=== PATIENT | male | born 1965 ===

== ENCOUNTER → 2016-07-22 | Day surgery (SDC) | payer OTHER ==
[~2016-07-22] VITALS: Ht 193 cm; Wt 89.0 kg
[~2016-07-22] MED LIST: 500ML BSSPLUS 0.5ML EPI1:1000 IRRIG ONE; ACETAMINOPHEN 325 MG TAB PO PRN; ATROPINE SULFATE 0.1 MG/ML 5ML SYR IV PRN; ATROPINE SULFATE 1% OP OINT PER APPLICATION CHARGE ONE; AcetaZOLAMIDE 250 MG TAB PO ONE; AcetaZOLAMIDE 500 MG CAPCR ONE; BSS FLUSH ONE; BUPIVACAINE HCL 0.75% 10 ML AMP/VIAL ONE; CEFAZOLIN SOD 1 GM VIAL ONE; CITA20TA4 PO; DEXAMETHASONE SOD INJ 4 MG/ML VIAL ONE; EpHEDrine SULFATE INJ 50 MG/ML AMP IV PRN; EpINEphrine INJ 1MG/ML AMP 1 MG/ML AMP ONE; FENTANYL CITRATE INJ 50 MCG/1 ML 2 ML VIAL IV PRN; FLUMAZENIL 0.1 MG/1 ML 10 ML VIAL IV PRN; HMLI7525 SC; HYALURONIDASE HUMAN 150 UNIT/ML INJ ONE; HYDROmorphone INJ 2 MG/ML SYR/VIAL IV PRN; INDOCYANINE GREEN 25 MG/10 ML ONE; INSULIN HUMAN REGULAR IV ONE; LABETALOL HCL IV 5 MG/ML 20ML IV PRN; LACTATED RINGER'S 1000ML 500 ML IV SCH; LIDOCAINE HCL 2% 2 ML VIAL (20MG/ML) ONE; LIDOCAINE MPF 4% INJ INJ ONE; LISI-461 PO; LVMI; MEPERIDINE HCL 25 MG/ML CARP IV PRN; METF1TAB53 PO; MIDAZOLAM HCL 1 MG/ML 2ML VIAL ONE; NALOXONE HCL 0.4 MG/1 ML VIAL/CARP IV PRN; NEOMYCIN/POLYMYX/DEXAMETH OP OINT PER APP CHARGE ONE; NovoLIN-R INSULIN PER UNIT CHARGE ONE; OCUCOAT 1 ML SOLN IO ONE; ONDANSETRON INJ 2 MG/ML 2 ML VIAL IV PRN; PHENYLEPHRINE 100MCG/ML 5ML SYR IV PRN; POLY335019 PO; PRLSR20 PO; PROP20TA67 PO; PROPARACAINE 0.5% OP SOLN PER DROP CHARGE OPL SCH; PROPOFOL IV EMULSION 10 MG/ML 20 ML VIAL IV ONE; ROPI2TAB6 PO; SIMV40TA2 PO; TIMOLOL MALEATE 0.5% OP SOLN PER DROP CHARGE ONE; VNTHFA/IN INH; WARF4TAB8 PO; WARF5TAB7 PO
[2016-07-22 11:39] VITALS: Ht 193 cm; Wt 89.0 kg
[2016-07-22] MEDS: PHENYLEPHRINE HCL 2.5% OP SOLN PER DROP CHARGE OPL SCH ×2 (11:59→12:04)
[2016-07-22] MEDS: TROPICAMIDE 1% OP SOLN PER DROP CHARGE OPL SCH ×2 (12:00→12:05)
[2016-07-22 14:02] VITALS: TEMP 36.9
--- NOTE | 2016-07-22 14:04 | [facility] Operative Report ---
Operative Report PREOPERATIVE DIAGNOSIS: Macula-off retinal detachment, left eye. ICD 10: H33.022 POSTOPERATIVE DIAGNOSIS: same. PROCEDURE: 1. Pars plana vitrectomy, 23 gauge. 2. Fluid-air exchange. 3. Endolaser. 4 Air-gas exchange with [id number]%. All to the left eye. CPT CODE: 32217 SURGEON: Gray Ford D.O. COMPLICATIONS: None. ESTIMATED BLOOD LOSS: None. SPECIMENS: None. ANESTHESIA: Retrobulbar block and MAC. INDICATIONS FOR PROCEDURE: Surgery is indicated to decrease risk of vision loss and potentially improve vision. CONSENT: The risks, benefits and alternatives were discussed with the patient including but not limited to decreased visual acuity, failure to achieve desired results, loss of the eye, infection, pain, glaucoma, lens changes, retinal tears, retinal detachment, the need for more procedures, drooping of the eyelid, blindness, and double vision. The patient is aware of risks and consents to the surgery. Consent is signed and on the chart. OPERATION AND FINDINGS: The patient was brought to the operating room where the patient was identified by name, date, and medical record number. The surgical site was confirmed with the informed written consent. The patient was sedated by the anesthesiology team after which a 50:50 mixture of 4% lidocaine and 0.75% bupivacaine with hyaluronidase was administered in a standard retrobulbar fashion. A total of 4 ml was administered without difficulty. The patient was then prepped and draped in the usual sterile manner for retinal surgery. A wire lid speculum was placed and an Melvin 23-gauge trocar cannula system was employed. The inferior temporal trocar cannula was first placed in an angled fashion 3.75mm posterior to the surgical limbus and the infusion cannula was inserted into this cannula after which the intravitreal position was verified prior to turning the infusion on. Two more trocar cannulas were then inserted in an angled fashion, one in the superior temporal, and one in the superior nasal quadrant both 3.75mm posterior to the surgical limbus. A light pipe and vitrector were then introduced into the eye and the BIOM wide angle viewing system was brought into place. Posterior inspection revealed a macula off retinal detachment from 12-4 o'clock with the inciting retinal break at 1-2 o'clock. There was also extensive from 1- 6 o'clock with small holes. Standard core vitrectomy was performed and the vitreous was insured to be totally detached from the posterior pole with the aid of the vitrector. There was extensive lattice with a posterior insertion of the vitreous base. The vitreous base was shaved for 360 degrees. Fluid air exchange was performed and the subretinal fluid was drained through a small retinotomy site that was fashioned superior to the arcades. Endolaser was then used to place laser around the inciting retinal break and the drainage retinotomy as well as for 360 degrees along the vitreous base. Next, an air gas exchange was performed with C3F8 12% for a complete fill of the eye. The trocar cannulas were then removed and found to be air tight. The intraocular pressure was found to be within normal limits by palpation and subconjunctival injections of Kefzol and dexamethasone were administered inferiorly and superiorly. The wire lid speculum was removed. Maxitrol, atropine and timolol were applied to the surface of the eye. A light patch and shield were taped over the surface of the eye and the patient left the Operating Room in stable condition having tolerated the procedure well. DISPOSITION: A gas bracelet was placed on the patient's wrist and gas precautions reviewed as well as the positioning instructions. The patient has an appointment the following morning in the Ophthalmology Clinic. The patient is to call immediately if there are any problems overnight. I attest to the content of the Intraoperative Record and any orders documented therein. Any exceptions are noted below.
--- NOTE | 2016-07-22 14:05 | Discharge Instructions-SurgCtr ---
Discharge Instructions Visit Reason for Visit: Left Eye Retinal Detachment Discharge Discharge Diagnosis / Problem: same Discharge Goals Goal(s): Improve function Activity Recommendations Activity Limitations: per Instructions/Follow-up section Anesthesia . Post Anesthesia Instructions: If you have had General Anesthesia or IV Sedation: * Do not drive today. * Resume driving when surgeon permits. * Do not make important decisions or sign legal documents today. * Call surgeon for: 1. Temperature elevations greater than 101 degrees F. 2. Uncontrollable pain. 3. Excessive bleeding. 4. Persistent nausea and vomiting. 5. Medication intolerance (nausea, vomiting or rash). * For nausea and vomiting use only clear liquids such as: tea, soda, bouillon until nausea subsides, then gradually increase diet as tolerated. * If you have any concerns or questions, call your surgeon's office. If physician is unavailable and it is an emergency, call 911 or go to the nearest emergency room. . Instructions / Follow-Up Instructions / Follow-Up * May take Tylenol if needed for discomfort. * Do NOT lay flat on back and position head as follows: face down or right side down * Do NOT remove green bracelet until instructed to do so by your surgeon and follow these precautions: * No air travel * No travel above 2500 feet * No nitrous oxide (N2O). * Do NOT remove eye shield. * NO straining, heavy lifting (>15 pounds) or bending below waist. * Avoid getting water or soap directly into operative eye. * Do NOT rub eye. If you experience increasing eye pain not relieved by medication, please contact us immediately at [phone]. If you are unable to reach someone at the above number, call [phone] and ask to speak with the EYE DOCTOR TILE PICKER. Inform them that you are a Dr. Ford patient who had recent surgery. Procedures Procedures Performed: Left Eye Vitrectomy 23 Gauge With Laser And Gas Insertion Pending Studies Studies pending at discharge: no Medical Emergencies . Who to Call and When: Medical Emergencies: If at any time you feel your situation is an emergency, please call 911 immediately. . Non-Emergent Contact Non-Emergency issues call your: Taxi Truck Driver . . "Provider Documentation" section prepared by Gray Ford.
--- NOTE | 2016-07-22 14:28 | Anesthesia Progress Nt - [facility] ---
Anesthesia Post Op Note Date & Time Jul 22, 2016 at 14:25 Vital Signs Pain Intensity: 0 Vital Signs Past 12 Hours Date Time Temp Pulse Resp B/P Pulse Ox O2 Delivery O2 Flow Rate FiO2 07/22/16 14:02 36.9 85 16 145/97 99 Room Air 07/22/16 11:39 36.5 95 16 121/82 99 Room Air Notes Mental Status: alert / awake / arousable, participated in evaluation Pt Amnestic to Procedure: Yes Nausea / Vomiting: adequately controlled Pain: adequately controlled Airway Patency, RR, SpO2: stable & adequate BP & HR: stable & adequate Hydration State: stable & adequate Anesthetic Complications: no major complications apparent The patient's preop BSG was 324. He was given insulin regular 15 unit IV in the preop area. His BSG was checked during the case and dropped into the 200s and then 184 just prior to the end of the procedure. He is awake and stable in the PACU and has began to eat. I recommended to the patient and his family to frequently check his BSG as he has been and to treat it accordingly to which they agreed. 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
[2016-07-22 14:29] VITALS: BP 153/94; PULSE 86; O2SAT 99
== END | disposition home or self-care (01) ==
LOC: X.SURG 11:29
PROVIDERS: ATTEND Ophthalmology
DX: H33.22 Serous retinal detachment, left eye (principal); J45.909 Unspecified asthma, uncomplicated; E03.9 Hypothyroidism, unspecified; Q15.0 Congenital glaucoma; E10.65 Type 1 diabetes mellitus with hyperglycemia; Z86.718 Personal history of other venous thrombosis and embolism; Z79.01 Long term (current) use of anticoagulants; E78.5 Hyperlipidemia, unspecified; I10 Essential (primary) hypertension; N28.9 Disorder of kidney and ureter, unspecified; H43.12 Vitreous hemorrhage, left eye; F17.290 Nicotine dependence, other tobacco product, uncomplicated; Z80.6 Family history of leukemia; Z83.3 Family history of diabetes mellitus; Z83.511 Family history of glaucoma; Z82.49 Family history of ischemic heart disease and other diseases of the circulatory system; Z83.49 Family history of other endocrine, nutritional and metabolic diseases; Z82.3 Family history of stroke; Z83.518 Family history of other specified eye disorder; I80.9 Phlebitis and thrombophlebitis of unspecified site; K21.9 Gastro-esophageal reflux disease without esophagitis; F41.9 Anxiety disorder, unspecified; F32.9 Major depressive disorder, single episode, unspecified

== ENCOUNTER → 2017-03-30 | Day surgery (SDC) | payer OTHER ==
[~2017-03-30] VITALS: Ht 193 cm; Wt 97.0 kg
[~2017-03-30] MED LIST changes: -500ML BSSPLUS 0.5ML EPI1:1000 IRRIG ONE; -ACETAMINOPHEN 325 MG TAB PO PRN; -ATROPINE SULFATE 1% OP OINT PER APPLICATION CHARGE ONE; -AcetaZOLAMIDE 250 MG TAB PO ONE; -AcetaZOLAMIDE 500 MG CAPCR ONE; -BSS FLUSH ONE; +FENTANYL CITRATE INJ 50 MCG/1 ML 2 ML VIAL ONE; +HMLIS SC; -INDOCYANINE GREEN 25 MG/10 ML ONE; -INSULIN HUMAN REGULAR IV ONE; -LVMI; +LVMI SC; -NovoLIN-R INSULIN PER UNIT CHARGE ONE; -OCUCOAT 1 ML SOLN IO ONE; +ONDANSETRON INJ 2 MG/ML 2 ML VIAL ONE; +PHENYLEPHRINE HCL 2.5% OP SOLN PER DROP CHARGE OPR SCH; +POVIDONE-IODINE OP SOLN (SURGERY CNTR CHARGING ONLY) ONE; -PROPARACAINE 0.5% OP SOLN PER DROP CHARGE OPL SCH; +PROPARACAINE 0.5% OP SOLN PER DROP CHARGE OPR SCH; +RIVA1TAB PO; +TROPICAMIDE 1% OP SOLN PER DROP CHARGE OPR SCH
[2017-03-30 08:16] VITALS: Ht 193 cm; Wt 97.0 kg
[2017-03-30 08:21] VITALS: BP 131/91; PULSE 84; TEMP 36.7; O2SAT 97
--- NOTE | 2017-03-30 09:32 | History & Physical Bridge - SC ---
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 I have examined the patient, reviewed the History & Physical and in the interval since the performance of the History & Physical I have noted the following changes of clinical significance: No changes noted
--- NOTE | 2017-03-30 11:00 | Anesthesiology Progress Note ---
Anesthesia Progress Note Date of Service Mar 30, 2017. Progress Notes The patient is an insulin dependent diabetic who was found to have a BSG of 423 rechecked at 442 on arrival today. He took Levemir 50 units last night but also ate three pieces of pizza and had several snack cakes right before going to bed because he was afraid of becoming hypoglycemic after fasting 8 hours. The patient did not take his morning dose of Levemir because he has not picked it up from the pharmacy yet. The patient took 14 units of his own Humalog insulin at 0830. His BSG at [address] Ford requested general anesthesia for the procedure, but due to the uncontrolled hyperglycemia, the patient's surgery was cancelled today. His skeiner's office in [place] was called and I discussed the patient with a nurse practitioner from there. She recommended to recheck the patient's BSG at 1030 and to let him leave if it was under 300 without giving him any additional insulin. She stated that the patient does have difficulty controlling his blood sugar but they will work with him so that he may be controlled enough to have his eye surgery. She also spoke to the patient and told him to pickup his Levemir from the pharmacy to take his morning dose. The patient's BSG was rechecked at 1030 and found to be 288. The patient was counseled not to eat snack cakes and sugary foods the night prior to his surgery and was reassured that his blood sugar would be monitored by anesthesia in the perioperative period to check for hypoglycemia. He was discharged home and told to follow up with his skeiner.
== END | disposition home or self-care (01) ==
LOC: X.SURG 07:44
PROVIDERS: ATTEND Ophthalmology
DX: H33.22 Serous retinal detachment, left eye (principal); H33.309 Unspecified retinal break, unspecified eye; Z53.09 Procedure and treatment not carried out because of other contraindication; E10.65 Type 1 diabetes mellitus with hyperglycemia; J45.909 Unspecified asthma, uncomplicated; E03.9 Hypothyroidism, unspecified; E10.40 Type 1 diabetes mellitus with diabetic neuropathy, unspecified; N40.0 Benign prostatic hyperplasia without lower urinary tract symptoms; E78.5 Hyperlipidemia, unspecified; I10 Essential (primary) hypertension; Z79.4 Long term (current) use of insulin; Z79.899 Other long term (current) drug therapy; Z79.84 Long term (current) use of oral hypoglycemic drugs; Z82.49 Family history of ischemic heart disease and other diseases of the circulatory system; Z83.3 Family history of diabetes mellitus

== ENCOUNTER → 2017-04-27 | Day surgery (SDC) | payer OTHER ==
[2017-04-23 11:06] VITALS: Ht 193 cm; Wt 52.3 kg
[~2017-04-27] VITALS: Ht 193 cm; Wt 52.3 kg
[~2017-04-27] MED LIST changes: +ACETAMINOPHEN 325 MG TAB PO PRN; +BSS FLUSH ONE; -BUPIVACAINE HCL 0.75% 10 ML AMP/VIAL ONE; -CEFAZOLIN SOD 1 GM VIAL ONE; +DEXAMETH OP OPR ONE; -DEXAMETHASONE SOD INJ 4 MG/ML VIAL ONE; +DEXTROSE 5% 1000ML 500 ML IV SCH; -EpINEphrine INJ 1MG/ML AMP 1 MG/ML AMP ONE; -FENTANYL CITRATE INJ 50 MCG/1 ML 2 ML VIAL ONE; -FLUMAZENIL 0.1 MG/1 ML 10 ML VIAL IV PRN; -HMLI7525 SC; -HYALURONIDASE HUMAN 150 UNIT/ML INJ ONE; -HYDROmorphone INJ 2 MG/ML SYR/VIAL IV PRN; +KETOROLAC TROMETHAMINE 30 MG/ML VIAL IV. ONE; -LABETALOL HCL IV 5 MG/ML 20ML IV PRN; -LIDOCAINE MPF 4% INJ INJ ONE; -MEPERIDINE HCL 25 MG/ML CARP IV PRN; -NALOXONE HCL 0.4 MG/1 ML VIAL/CARP IV PRN; +NEOMYCIN OPR ONE; -NEOMYCIN/POLYMYX/DEXAMETH OP OINT PER APP CHARGE ONE; +NURSING VERBAL MED ORDER ONE; -PHENYLEPHRINE 100MCG/ML 5ML SYR IV PRN; -PHENYLEPHRINE HCL 2.5% OP SOLN PER DROP CHARGE OPR SCH; +POLYMYX OPR ONE; -POVIDONE-IODINE OP SOLN (SURGERY CNTR CHARGING ONLY) ONE; -TIMOLOL MALEATE 0.5% OP SOLN PER DROP CHARGE ONE; -TROPICAMIDE 1% OP SOLN PER DROP CHARGE OPR SCH; -WARF4TAB8 PO; -WARF5TAB7 PO
[2017-04-27] MEDS: PHENYLEPHRINE HCL 2.5% OP SOLN PER DROP CHARGE OPR SCH ×2 (08:56→09:01)
[2017-04-27] MEDS: TROPICAMIDE 1% OP SOLN PER DROP CHARGE OPR SCH ×2 (08:58→09:02)
[2017-04-27 09:09] LABS: INR 0.9 (0.9-1.1); PROTHROMBIN TIME (PATIENT) 10.1 SECONDS (9.0-12.0)
--- NOTE | 2017-04-27 10:24 | History and Physical: Surg Cnt ---
History & Physical Date Apr 27, 2017. Chief Complaint lattice degeneration right eye and h/o RD in fellow eye. History of Present Illness The patient is a 51 year old male with complaints of Additional History Hepatic Disease: No Endocrine Disorder: No Kidney Disease: No Bleeding Tendencies: No Infectious Diseases: No Allergies Coded Allergies: No Known Allergies (Unverified , 04/27/17) Home Medications Scheduled Citalopram Hydrobromide (Citalopram Hydrobromide), 1 TAB PO QAM Insulin Detemir (Levemir), 48 UNITS SC BID Insulin Human Lispro (Humalog Kwikpen), 1 DOSE SC UD Lisinopril (Lisinopril), 1 TAB PO QAM Metformin Hcl (Glucophage Ext Rel), 1 TAB PO BID Omeprazole (Prilosec), 20 MG PO QPM Propranolol (Inderal), 20 MG PO BID Rivaroxaban (Xarelto), 10 MG PO QPM Ropinirole (Requip), 2 MG PO HS Simvastatin (Zocor), 40 MG PO QPM Scheduled PRN Albuterol Hfa (Ventolin Hfa), 2-4 PUFFS INH Q4 PRN for Wheezing Polyethylene Glycol 3350 (Miralax), 17 GM PO DAILY PRN for Constipation Physical Examination Skin: warm/dry Eyes: normal inspection Head: normocephalic Respiratory/Chest: lungs clear Cardiovascular: regular rate, rhythm Extremities: normal inspection Plan of Treatment laser treatment right eye
--- NOTE | 2017-04-27 11:20 | [facility] Operative Report ---
Operative Report Date of Service Apr 27, 2017. Operative Report PREOPERATIVE DIAGNOSIS: lattice degeneration right eye. POSTOPERATIVE DIAGNOSIS: same. PROCEDURE: 1. Laser with indirect ophthalmoscopy. All to the right eye. CPT: 26349 SURGEON: Gray Ford D.O. COMPLICATIONS: None. ESTIMATED BLOOD LOSS: None. SPECIMENS: None. ANESTHESIA: General with LMA. INDICATIONS FOR PROCEDURE: Surgery is indicated to decrease risk of vision loss. CONSENT: The risks, benefits and alternatives were discussed with the patient including but not limited to decreased visual acuity, failure to achieve desired results, pain, glaucoma, lens changes, the need for more procedures, drooping of the eyelid, blindness. The patient is aware of risks and consents to the surgery. Consent is signed and on the chart. OPERATION AND FINDINGS: The patient was brought to the operating room where the patient was identified by name, date, and medical record number. The surgical site was confirmed with the informed written consent. The patient was sedated by t A wire lid speculum was placed and scleral depression was performed for 360 degrees an indirect ophthalmoscope was used to apply laser surrounding the areas of lattice degeneration in the periphery. The wire lid speculum was removed. Maxitrol was applied to the surface of the eye. The patient was awoken by anesthesia and the patient left the Operating Room in stable condition having tolerated the procedure well. DISPOSITION: The patient has an appointment the following morning in the Ophthalmology Clinic. The patient is to call immediately if there are any problems overnight. I attest to the content of the Intraoperative Record and any orders documented therein. Any exceptions are noted below.
--- NOTE | 2017-04-27 11:21 | Discharge Instructions-SurgCtr ---
Discharge Instructions Date of Service Apr 27, 2017. Visit Reason for Visit: Right Eye Lattice Degeneration Discharge Discharge Diagnosis / Problem: same Discharge Goals Goal(s): Prevent Disease Progression Medications Stopped Medications Name(s): Stopped taking 04/24/17. Stopped Metformin 04/25/17. Activity Recommendations Activity Limitations: resume your previous activity Lifting Limitations: none Exercise/Sports Limitations: none May Resume Sexual Activity: when tolerated Shower/Bathe: no limitations Driving or Machine Use: resume 1 day after discharge Anesthesia . Post Anesthesia Instructions: If you have had General Anesthesia or IV Sedation: * Do not drive today. * Resume driving when surgeon permits. * Do not make important decisions or sign legal documents today. * Call surgeon for: 1. Temperature elevations greater than 101 degrees F. 2. Uncontrollable pain. 3. Excessive bleeding. 4. Persistent nausea and vomiting. 5. Medication intolerance (nausea, vomiting or rash). * For nausea and vomiting use only clear liquids such as: tea, soda, bouillon until nausea subsides, then gradually increase diet as tolerated. * If you have any concerns or questions, call your surgeon's office. If physician is unavailable and it is an emergency, call 911 or go to the nearest emergency room. . Diet Recommendations Home Diet: resume previous diet Procedures Procedures Performed: Right Eye Indirect Laser Pending Studies Studies pending at discharge: no Medical Emergencies . Who to Call and When: Medical Emergencies: If at any time you feel your situation is an emergency, please call 911 immediately. . Non-Emergent Contact Non-Emergency issues call your: Tariff Supervisor . . "Provider Documentation" section prepared by Gray Ford. .
[2017-04-27 11:25] VITALS: TEMP 36.5
[2017-04-27 11:52] VITALS: BP 160/109; PULSE 83; O2SAT 98
--- NOTE | 2017-04-27 11:55 | Anesthesia Progress Nt - [facility] ---
Anesthesia Post Op Note Date & Time Apr 27, 2017 at 11:55 Vital Signs Pain Intensity: 4 Vital Signs Past 12 Hours Date Time Temp Pulse Resp B/P (MAP) Pulse Ox O2 Delivery O2 Flow Rate FiO2 04/27/17 11:52 83 16 160/109 (126) 98 Room Air 04/27/17 11:25 36.5 90 20 192/105 (134) 100 Room Air 04/27/17 08:46 36.6 83 18 117/82 (94) 99 Room Air Notes Mental Status: alert / awake / arousable, participated in evaluation Pt Amnestic to Procedure: Yes Nausea / Vomiting: adequately controlled Pain: adequately controlled Airway Patency, RR, SpO2: stable & adequate BP & HR: stable & adequate Hydration State: stable & adequate Anesthetic Complications: no major complications apparent
== END | disposition home or self-care (01) ==
LOC: X.SURG 08:11
PROVIDERS: ATTEND Ophthalmology
DX: H35.411 Lattice degeneration of retina, right eye (principal); E11.9 Type 2 diabetes mellitus without complications; I12.9 Hypertensive chronic kidney disease with stage 1 through stage 4 chronic kidney disease, or unspecified chronic kidney disease; Z86.718 Personal history of other venous thrombosis and embolism; N18.2 Chronic kidney disease, stage 2 (mild); J45.909 Unspecified asthma, uncomplicated; Z98.49 Cataract extraction status, unspecified eye; Z98.890 Other specified postprocedural states; Z90.89 Acquired absence of other organs; Z79.4 Long term (current) use of insulin; Z79.899 Other long term (current) drug therapy; Z79.01 Long term (current) use of anticoagulants